=== PATIENT | female | born 1955 | race Asian ===

== ENCOUNTER 2020-10-24 18:50 | Emergency (ER) | payer OTHER ==
[~2020-10-24] VITALS: Ht 157.5 cm; Wt 72.6 kg
[2020-10-24 19:35] VITALS: BP 167/110; TEMP 98.5
== END 2020-10-24 19:35 | disposition home or self-care (01) ==
LOC: ED 18:50
DX: S16.1XXA Strain of muscle, fascia and tendon at neck level, initial encounter (principal)
CPT/HCPCS: 99282